=== PATIENT | female | born 1965 | race Caucasian/White ===

== ENCOUNTER 2018-08-13 10:57 | Emergency (ER) | payer MEDICAID ==
[~2018-08-13] VITALS: Ht 157.5 cm; Wt 55.0 kg
[2018-08-13] MEDS ORDERED: FERR220S6 PO (11:20)
[2018-08-13] MEDS ORDERED: SODIUM CHLORIDE 0.9% 1,000 ML IV ONE (15:47)
[2018-08-13 16:41] LABS: EOSINOPHILS % 2.1 % (0.0-5.0); HEMATOCRIT. 26.2 % (36.0-48.0); HEMOGLOBIN. 7.9 g/dL (12.0-16.0); LYMPHOCYTES % 32.9 % (20.0-50.0); MEAN CORPUSCULAR VOLUME 73.2 fL (81.0-99.0); MONOCYTES % 9.4 % (2.0-8.0); NEUTROPHILS % 54.6 % (40.0-76.0); PLATELET 453 x1000/uL (130-400); RED BLOOD CELL COUNT 3.58 mill/uL (4.2-5.4); RED CELL DISTRIBUTION WIDTH 16.9 % (11.6-14.6)
[2018-08-13 16:49] LABS: CHLORIDE 103 mEq/L (98-107)
[2018-08-13 16:52] LABS: PARTIAL THROMBOPLASTIN TIME 24.5 sec (23.4-31.0)
[2018-08-13 19:19] VITALS: BP 121/73
== END 2018-08-13 19:21 | disposition home or self-care (01) ==
LOC: ER 11:55 → CANBEDREQ 21:00
DX: D64.9 Anemia, unspecified (principal); R01.1 Cardiac murmur, unspecified; Z90.49 Acquired absence of other specified parts of digestive tract
CPT/HCPCS: 36415; 71045; 80053; 83880; 84484; 85025; 85610; 85730; 86850; 86900; 86901; 93005; 99284; J7030